=== PATIENT | male | born 1980 | race Caucasian/White ===

== ENCOUNTER 2024-05-02 06:28 | Day surgery (SDC) | payer OTHER, SELFPAY | END 2024-05-02 12:54 | disposition home or self-care (01) | LOC: GI 06:28 | PROVIDERS: ATTENDING PHYSICIAN Internal Medicine | DX: K51.50 Left sided colitis without complications (principal); Z86.0101 Personal history of adenomatous and serrated colon polyps; K51.40 Inflammatory polyps of colon without complications; K63.89 Other specified diseases of intestine | CPT/HCPCS: 45380; 88305 ==